=== PATIENT | female | born 1990 | race Caucasian/White ===

== ENCOUNTER 2024-05-12 04:32 | Emergency (ER) | payer OTHER, SELFPAY ==
[2024-05-12 04:35] VITALS: BP 154/110; PULSE 72; TEMP 37.3; O2SAT 99; BMI 36.1
--- NOTE | 2024-05-12 05:05 | ED.ABDPAIN1 ---
HPI - Abdominal Pain General Chief Complaint: Abdominal Pain Stated Complaint: ABD PAIN Time Seen by Provider: 05/12/24 05:02 Source: patient Mode of arrival: walk-in Limitations: no limitations History of Present Illness HPI narrative: past cholecystectomy. epigastric abdominal pain on and off for several months. Started again about 2 hours ago. Associated with nausea. No fever or diarrhea. No back pain or dyspnea. in the past did take protonix but is no longer taking Related Data Home Medications ?Medication ?Instructions ?Recorded ?Confirmed No Known Home Medications 05/12/24 05/12/24 Allergies Allergy/AdvReac Type Severity Reaction Status Date / Time hydromorphone [From Dilaudid] Allergy Severe Unresponsiv Verified 05/12/24 04:42 e Review of Systems ROS Status of ROS 10 or more systems reviewed and unremarkable except as noted in history and below PFSH PFSH Social History Little interest or pleasure in doing things: not at all Feeling down, depressed, or hopeless: not at all Exam Constitutional Vital Signs, click to edit/add: Last Vital Signs Temp 99.1 F 05/12/24 04:35 Pulse 72 05/12/24 04:35 Resp 16 05/12/24 04:35 BP 154/110 H 05/12/24 04:35 Pulse Ox 99 05/12/24 04:35 O2 Del Method Room Air 05/12/24 04:35 Common normals: no apparent distress, average body habitus, oriented x3, no limitations, healthy appearing, alert and well nourished [facility] Common normals: normocephalic and head/scalp atraumatic Eye Common normals: PERRL and EOMs intact bilaterally Respiratory Common normals: normal respiratory effort, no retractions, no use of accessory muscles and clear to auscultation bilaterally Cardio Common normals: regular rate, regular rhythm, S1 normal heart sound and S2 normal heart sound GI Other: epigastric tenderness Extremity Common normals: normal to inspection and full ROM Neuro Common normals: oriented x3, CN's II-XII intact bilaterally, moves all extremities and no focal motor deficits Psych Appearance: grossly normal Course Vital Signs Vital signs: Vital Signs Temperature 99.1 F 05/12/24 04:35 Pulse Rate 72 05/12/24 04:35 Respiratory Rate 16 05/12/24 04:35 Blood Pressure 154/110 H 05/12/24 04:35 Pulse Oximetry 99 05/12/24 04:35 Oxygen Delivery Method Room Air 05/12/24 04:35 Temperature 99.1 F 05/12/24 04:35 Pulse Rate 72 05/12/24 04:35 Respiratory Rate 16 05/12/24 04:35 Blood Pressure 154/110 H 05/12/24 04:35 Pulse Oximetry 99 05/12/24 04:35 Oxygen Delivery Method Room Air 05/12/24 04:35 MDM - Abdominal Pain MDM Narrative Medical decision making narrative: patient presents complaining of recurrent epigastric abdominal pain. Has epigastric tenderness. labs and diagnostic studies without findings to explain her symptoms. Patient re interviewed and is now feeling better. Patient advised to restart Protonix as her symptoms are likely related to GERD or PUD/gastritis. Discharged home with a prescription for protonix and advised to follow up with her doctor Lab Data Labs: Lab Results 05/12/24 Range/Units 04:45 WBC 8.0 (4.0-11.0) 10^3/uL RBC 4.74 (4.20-5.40) 10^6/uL Hgb 13.7 (12.0-16.0) g/dL Hct 41.1 (36.0-48.0) % MCV 86.7 (81.0-99.0) fL MCH 28.9 (26.7-34.0) pg MCHC 33.3 (29.9-35.2) g/dL RDW 13.1 (11.0-15.0) % Plt Count 232 (150-450) 10^3/uL MPV 11.1 (9.5-13.5) fL Neut % (Auto) 51.1 (43.0-75.0) % Lymph % (Auto) 32.9 (20.5-60.0) % [place] % (Auto) 10.0 (1.7-12.0) % Eos % (Auto) 5.1 (0.9-7.0) % Baso % (Auto) 0.6 (0.2-2.0) % Neut # (Auto) 4.1 (1.4-6.5) 10^3/uL Lymph # (Auto) 2.6 (1.2-3.8) 10^3/uL [place] # (Auto) 0.8 (0.3-0.8) 10^3/uL Eos # (Auto) 0.4 (0.0-0.7) 10^3/uL Baso # (Auto) 0.1 (0.0-0.1) 10^3/uL Abs Immat Gran (auto) 0.02 (0.00-0.03) 10^3/uL Imm/Tot Granulo (auto) 0.3 (0.0-0.5) % Sodium 135 L (136-145) mmol/L Potassium 4.5 (3.5-5.1) mmol/L Chloride 102 (98-107) mmol/L Carbon Dioxide 27.1 (21.0-32.0) mmol/L Anion Gap 10.4 BUN 14.0 (7.0-18.0) mg/dL Creatinine 0.81 (0.55-1.02) mg/dL Est GFR ( Amer) >60 (>=60) Est GFR (Non-Af Amer) >60 (>=60) BUN/Creatinine Ratio 17.3 Glucose 97 (74-106) mg/dL Lactate 1.0 (0.4-2.0) mmol/L Calcium 8.9 (8.5-10.1) mg/dL Total Bilirubin 0.6 (0.2-1.0) mg/dL AST 34 (15-37) U/L ALT 26 (14-59) U/L Alkaline Phosphatase 56 (46-116) U/L Troponin I High Sens 4.8 (4.0-51.3) pg/mL Total Protein 7.7 (6.4-8.2) g/dL Albumin 3.6 (3.4-5.0) g/dL Globulin 4.1 g/dL Albumin/Globulin Ratio 0.9 Lipase 40.0 (16.0-77.0) U/L Imaging Data Chest x-ray: Radiologist's impression: ITS Impressions Chest X-Ray 05/12/24 05:07 IMPRESSION: 1. No acute cardiopulmonary process. Electronically authenticated by: IDRIS CASTELLON Date: 05/12/2024 06:08 Abdomen/Pelvis CT 05/12/24 05:08 IMPRESSION: 1. No suspicious right upper quadrant/epigastric findings to account for patient's symptoms. 2. Collapsing cyst/follicle within left ovary of questionable clinical significance. 3. 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 Electronically authenticated by: IDRIS CASTELLON Date: 05/12/2024 06:08 Discharge Plan Discharge Chief Complaint: Abdominal Pain Clinical Impression: Abdominal pain Patient Disposition: Home, Self-Care Prescriptions / Home Meds: No Action No Known Home Medications Print Language: Ukrainian Instructions: Abdominal Pain (ED) Additional Instructions: follow up with your doctor next week for recheck Referrals: GRISEL LAWRENCE [Primary Care Provider] - 1 week
--- NOTE | 2024-05-12 05:07 | XR_ITS ---
The [address] [address] Patient Name: JOSEPHINE GUTIÉRREZ MRN: [id number] date: 1990 Sex: F Assigned Patient Location: ER Current Patient Location: ER Accession/Order Number: [id number] Exam Date: 05/12/2024 05:33 Report Date: 05/12/2024 06:08 At the request of: AALIYAH MATTHEWS Procedure: XR chest 1V EXAMINATION: XR chest 1V HISTORY: abdominal pain COMPARISON: No relevant comparison available. FINDINGS: LUNGS: No significant pulmonary parenchymal abnormalities. VASCULATURE: No increased pulmonary vasculature. PLEURA: No pneumothorax, effusion, or pleural thickening. CARDIAC: No cardiomegaly or cardiac silhouette abnormality. MEDIASTINUM: No visible mass or adenopathy. BONES: No fracture or visible bone lesion. OTHER: Negative. XR/XR chest 1V IMPRESSION: 1. No acute cardiopulmonary process. Electronically authenticated by: IDRIS CASTELLON Date: 05/12/2024 06:08
--- NOTE | 2024-05-12 05:08 | CT_ITS ---
The [place] [id number] Patient Name: JOSEPHINE GUTIÉRREZ MRN: [id number] date: 1990 Sex: F Assigned Patient Location: ER Current Patient Location: Accession/Order Number: [id number] Exam Date: 05/12/2024 05:33 Report Date: 05/12/2024 06:08 At the request of: AALIYAH MATTHEWS Procedure: CT abdomen pelvis w con EXAMINATION: CT abdomen pelvis w con HISTORY: epigastric pain , right upper quadrant pain COMPARISON: No relevant comparison available. TECHNIQUE: Axial, Coronal, and Sagittal images were obtained without and/or with IV contrast as indicated by examination type. Dose reduction techniques were achieved by using automated exposure control and/or adjustment of mA and/or kV according to patient size and/or use of iterative reconstruction technique. FINDINGS: LUNG BASES: No visible pulmonary or pleural disease. LIVER: No enlargement, atrophy, suspicious density, or significant focal lesion. BILIARY: Cholecystectomy. PANCREAS: No lesion, fluid collection, or abnormal duct dilatation. SPLEEN: No enlargement or focal lesion. ADRENALS: No mass or enlargement. KIDNEYS: Tiny hypodensity within left kidney favoring a cyst. No mass, obstruction, or calcification. BOWEL/MESENTERY: No visible mass, obstruction, or bowel wall thickening. Normal appendix. AORTA/VASCULAR: No aneurysm or dissection. RETROPERITONEUM: No mass or adenopathy. LYMPH NODES: No adenopathy. URINARY BLADDER: No visible focal wall thickening, lesion, or calculus. PELVIC ORGANS: Irregular, 2.2 cm rim-enhancing structure within left ovary is suspected to represent a collapsing cyst. ABDOMINAL WALL: No mass or hernia. BONES: Grade 2 anterior listhesis of L5 on S1 secondary to bilateral pars interarticularis defects, and marked disc space narrowing. OTHER: Negative. CT/CT abdomen pelvis w con IMPRESSION: 1. No suspicious right upper quadrant/epigastric findings to account for patient's symptoms. 2. Collapsing cyst/follicle within left ovary of questionable clinical significance. 3. 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 Electronically authenticated by: IDRIS CASTELLON Date: 05/12/2024 06:08
[2024-05-12 05:13] LABS: Basophils Absolute Auto 0.1 10^3/uL (0.0-0.1); Basophils Percent Auto 0.6 % (0.2-2.0); Eosinophils Absolute Auto 0.4 10^3/uL (0.0-0.7); Eosinophils Percent Auto 5.1 % (0.9-7.0); Hematocrit 41.1 % (36.0-48.0); Hemoglobin 13.7 g/dL (12.0-16.0); Immature Granulocytes Abs Auto 0.02 10^3/uL (0.00-0.03); Immature Granulocytes Pct Auto 0.3 % (0.0-0.5); Lymphocytes Absolute Auto 2.6 10^3/uL (1.2-3.8); Lymphocytes Percent Auto 32.9 % (20.5-60.0); Mean Corpuscular HGB Conc 33.3 g/dL (29.9-35.2); Mean Corpuscular Hemoglobin 28.9 pg (26.7-34.0); Mean Corpuscular Volume 86.7 fL (81.0-99.0); Mean Platelet Volume 11.1 fL (9.5-13.5); Monocytes Absolute Auto 0.8 10^3/uL (0.3-0.8); Neutrophils Absolute Auto 4.1 10^3/uL (1.4-6.5); Neutrophils Percent Auto 51.1 % (43.0-75.0); Platelet Count 232 10^3/uL (150-450); Red Blood Count 4.74 10^6/uL (4.20-5.40); Red Cell Distribution Width 13.1 % (11.0-15.0)
[2024-05-12 05:36] LABS: Alanine Aminotransferase 26 U/L (14-59); Albumin Globulin Ratio 0.9; Albumin Level 3.6 g/dL (3.4-5.0); Alkaline Phosphatase 56 U/L (46-116); Anion Gap 10.4; Aspartate Amino Transferase 34 U/L (15-37); BUN Creatinine Ratio 17.3; Bilirubin Total 0.6 mg/dL (0.2-1.0); Calcium 8.9 mg/dL (8.5-10.1); Carbon Dioxide 27.1 mmol/L (21.0-32.0); Chloride 102 mmol/L (98-107); Estimated GFR (African America >60 (>=60); Estimated GFR (Non-African Ame >60 (>=60); Globulin 4.1 g/dL; Glucose 97 mg/dL (74-106); Potassium 4.5 mmol/L (3.5-5.1); Sodium 135 mmol/L (136-145); Total Protein 7.7 g/dL (6.4-8.2); Troponin I High Sensitivity 4.8 pg/mL (4.0-51.3)
== END 2024-05-12 06:26 | disposition home or self-care (01) ==
PROVIDERS: Emergency Provider Internal Medicine; PCP Family Medicine
DX: R10.9 Unspecified abdominal pain (principal); Z90.49 Acquired absence of other specified parts of digestive tract
CPT/HCPCS: 36415; 71045; 74177; 80053; 83605; 83690; 84484; 85025; 99285; Q9967